=== PATIENT | female | born 1970 | race Caucasian/White ===

== ENCOUNTER → 2019-12-30 15:17 | Outpatient (BNVA) | payer OTHER, SELFPAY | PROVIDERS: Family Provider Family Medicine; PCP Family Medicine; Visit Provider Obstetrics & Gynecology | DX: N95.9 Unspecified menopausal and perimenopausal disorder (principal); R32 Unspecified urinary incontinence | CPT/HCPCS: 76830 ==

== ENCOUNTER → 2020-01-15 12:49 | Outpatient (BNVA) | payer OTHER, SELFPAY | PROVIDERS: Family Provider Family Medicine; PCP Family Medicine; Visit Provider Obstetrics & Gynecology | DX: N95.0 Postmenopausal bleeding (principal) | CPT/HCPCS: 81025 ==

== ENCOUNTER → 2020-01-16 10:47 | Outpatient (BNVA) | payer OTHER, SELFPAY | PROVIDERS: Family Provider Family Medicine; PCP Family Medicine; Visit Provider Obstetrics & Gynecology | DX: N95.0 Postmenopausal bleeding (principal) | CPT/HCPCS: 88305 ==

== ENCOUNTER → 2020-04-23 10:17 | Outpatient (BNVA) | payer OTHER, SELFPAY | PROVIDERS: Family Provider Family Medicine; PCP Family Medicine; Visit Provider Obstetrics & Gynecology | DX: Z11.59 Encounter for screening for other viral diseases (principal) | CPT/HCPCS: 87635 ==

== ENCOUNTER 2020-04-28 08:04 | Day surgery (SDC) | payer OTHER, SELFPAY ==
[2020-04-26 11:14] VITALS: BMI 31.7
[2020-04-28] VITALS (7 sets, daily range): BP systolic 94–111; BP diastolic 55–77; PULSE 70–96; RESP 16–18; TEMP 36.5–37.2; O2SAT 92–95
--- NOTE | 2020-04-28 08:53 | W.PM.OPSUD ---
Surgery/Procedure H&P Update DATE OF PROCEDURE: April 28, 2020 DATE H&P PERFORMED: 04/26/20 H&P UPDATE INFORMATION: I have reviewed H&P completed within last 30 days, I have examined patient prior to procedure and No changes to prior documentation PREOP DIAGNOSIS: Stress urinary incontinence, PLANNED PROCEDURE: Operation Date: 04/28/20 09:00 Proposed Procedures p Midurethral Single Incision Sling 27182 N39.46(Not Applicable) - Chaz Mojica MD
--- NOTE | 2020-04-28 09:00 | ANES.PREANE2 ---
Pre-Anesthetic Assessment Pre-Anesthetic Assessment: Height/Weight: Height 1.63 m Weight 83.915 kg Temp Pulse Resp BP Pulse Ox 98.7 F 77 18 103/77 93 04/28/20 08:25 04/28/20 08:25 04/28/20 08:25 04/28/20 08:25 04/28/20 08:25 Preop Diagnosis: Stress urinary incontinence, Proposed Procedure: Operation Date: 04/28/20 09:00 Proposed Procedures p Midurethral Single Incision Sling 85886 N39.46(Not Applicable) - Chaz Mojica MD Was Beta Berenice taken within 24 hours: N/A Last intake: Intake Last Liquid Date 04/27/20 Last Solid Date 04/27/20 Social: Social History: Tobacco and No alcohol Exam: Pre-Anes Outpt Exam: alert, oriented x 3, clear to auscultation bilaterally and regular rate & rhythm Airway: Submandibular: WNL Cervical ROM: WNL MP: 1 History/ROS: No significant history except as noted Pulmonary: Pulmonary: None reported Comments: Smoker CV/HEM: CV/HEM: None reported : : None reported Hepatic: Hepatic: Cirrohsis GI: GI: None reported Metabolic: Metabolic: None reported Musc/skel: Musc/skel: None reported Neuropsych: Neuropsych: Depression Anesthetic Plan: ASA status: 2 Anesthesia: General PFSH Anesthesia PFSH: Medical History Urinary incontinence, mixed Family History Mother Hyperlipidemia Hypertension Father Hyperlipidemia Hypertension Diabetes Heart disease Grandmother Diabetes Paternal grandmother Grandfather Stroke Maternal grandfather Denies family history of Colon cancer Ovarian cancer Breast cancer Family history of thyroid problem Uterine cancer Social History (Updated 04/26/20 @ 08:49 by Zulema Woodard RN) Smoking and tobacco status: current every day smoker cigarettes [ Other cigarette details: 1 cigarette/day ] and e-cigarettes E-Cigarette Details: vaporizer device Alcohol intake: never Female Reproductive History: Date of last menstrual period: 04/26/17 Data Anesthesia Cardiac Studies: No Data to Display
[2020-04-28] MEDS: sodium chloride 0.9% 1,000 ML 30 ML IV (09:01)
[2020-04-28] MEDS: scopolamine 1.5 Patch 1 PATCH TRANSDERMA (09:01)
[2020-04-28 09:16] LABS: OR HCG Qualitative Urine Negative (Negative)
[2020-04-28] MEDS: midazolam 1 mg/mL INJ 2 mL 2 MG IVP (09:17)
[2020-04-28 09:31] LABS: Basophils # 0.1 10^3/uL (0.0-0.1); Basophils % 0.7 %; Eosinophils # 0.6 10^3/uL (0.0-0.8); Eosinophils % 5.9 %; Hematocrit 41.4 % (37.0-47.0); Hemoglobin 13.1 g/dL (11.5-15.3); Lymphocytes # 2.3 10^3/uL (0.8-4.8); Lymphocytes % 21.4 %; Mean Corpuscular HGB Conc 31.6 g/dL (30.0-36.0); Mean Corpuscular Hemoglobin 27.8 pg (28.0-34.0); Mean Corpuscular Volume 87.7 fL (81-99); Mean Platelet Volume 11.6 fL (7.4-10.4); Monocytes # 0.6 10^3/uL (0.2-0.9); Monocytes % 5.1 %; Neutrophils # 7.16 10^3/uL (1.8-7.7); Neutrophils % 66.6 %; Nucleated Red Blood Cells % 0 %; Platelet Count 224 10^3/cmm (130-400); Red Blood Count 4.72 10^6/uL (4.1-5.3); Red Cell Distribution Width 13.5 % (12.1-15.1); White Blood Count 10.8 10^3/uL (4.0-10.0)
[2020-04-28 09:39] LABS: Blood Urea Nitrogen 16 mg/dL (6-20); Calcium 9.5 mg/dL (8.5-10.5); Carbon Dioxide 24 mmol/L (22-29); Chloride 103 mmol/L (98-107); Glomerular Filtration Rate 76.9 mL/min (90-130); Glucose 110 mg/dL (65-115); Osmolality Calculated 290 mOsm/kg (285-295); Sodium 139 mmol/L (136-145)
--- NOTE | 2020-04-28 10:07 | PM.OP ---
Operative Report Date of procedure: April 28, 2020 Pre-op Diagnosis: Stress urinary incontinence, Post-op diagnosis: same Post-op Findings: urethral hypermobility Procedure Done: Midurethral sling Implants: Coloplast Altis sling Surgeon: Chaz Mojica MD Anesthesia: General Estimated blood loss (mL): 25 IV fluids (mL): 900 Urine output (mL): 100 Complications: none Condition: stable Disposition: PACU Brief History: 49-year-old female with urinary stress incontinence Procedure: After obtaining informed consent, the patient was taken to the operating room and placed in the supine position, given general anesthesia, and prepped and draped in sterile fashion. The abdomen, vulva and vagina were prepped and draped in a sterile manner. A time out procedure was performed. Exam under anesthesia performed. A Dupont catheter was placed in the bladder. The anterior vaginal mucosa beneath the midurethra was infiltrated with 0.5% Marcaine with epinephrine. A vertical midline incision was made beneath the midurethra, nearly 1.5 cm length. Careful submucosal dissection was performed bilaterally up to the interior portion of the inferior pubic ramus. The insertion of adductor longus tendon on the patient?s pubic ramus was identified as reference land manda. Palpated the notch along the internal edge of ischiopubic ramus where the adductor longus tendon and the inferior pubic ramus meet. The needle of the SIS inserted aiming at the location of this notch. One of the integrated self-fixating tips place onto the needle by sliding it over the end of the needle. The needle/sling assembly was inserted toward the location of identified reference notch making sure that the flat of the handle is perpendicular to the desired path. The needle was tracked along the posterior surface of the ischiopubic ramus until the midline manda on the mesh is approximately at the midline position under the urethra. The needle was removed and the same was repeated on the contralateral side until the appropriate sling tension under the urethra was achieved ensuring that the mesh lays flat. The needle was removed and vaginal incision was closed in a running interlocking fashion with 2-0 Vicryl. Then the Dupont catheter was removed and cystoscope was inserted. The bladder was filled with sterile water. Complete evaluation of the bladder mucosa was performed noting no lacerations, dimpling, tears, bleeding of the mucosa or muscular layers. Both ureteral orifices were identified. Prompt excretion of urine from both ureteral orifices was noted. Cystoscope was withdrawn. Excellent hemostasis was obtained. Sponge, lap, needle, and instrument counts were correct times three. The patient was taken to the recovery room, awake and in stable condition.
== END 2020-04-28 11:32 | disposition home or self-care (01) ==
PROVIDERS: PCP Family Medicine; Visit Provider Obstetrics & Gynecology
PROC: (CPT 57288; principal; 2020-04-28 09:00)
PROC: 0TJB8ZZ Inspection of Bladder, Via Natural or Artificial Opening Endoscopic (ICD-10-PCS; CPT 52000; 2020-04-28 09:00)
DX: N39.3 Stress incontinence (female) (male) (principal); N36.41 Hypermobility of urethra; F17.210 Nicotine dependence, cigarettes, uncomplicated
CPT/HCPCS: 57288; 12345; 36415; 80048; 81025; 84703; 85025; 86850; 86900; 96374; C1713; J0131; J0690; J1100; J1885; J2250; J2405; J2704; J2710; J2765; J3010; J3490; J7030

== ENCOUNTER → 2020-12-13 11:10 | Outpatient (BNVA) | payer OTHER, SELFPAY | PROVIDERS: PCP Family Medicine; Visit Provider Surgery | DX: T63.301A Toxic effect of unspecified spider venom, accidental (unintentional), initial encounter (principal); Z20.822 Contact with and (suspected) exposure to COVID-19 | CPT/HCPCS: 87635 ==

== ENCOUNTER → 2020-12-17 14:21 | Outpatient (BNVA) | payer OTHER, SELFPAY | PROVIDERS: PCP Family Medicine; Visit Provider Surgery | DX: Z01.812 Encounter for preprocedural laboratory examination (principal); Z20.822 Contact with and (suspected) exposure to COVID-19 | CPT/HCPCS: 87635 ==

== ENCOUNTER 2020-12-23 07:14 | Day surgery (SDC) | payer OTHER, SELFPAY ==
[2020-12-22 11:49] VITALS: BMI 31.8
[2020-12-23 07:28] VITALS: BP 116/73; PULSE 70; RESP 18; TEMP 37.1; O2SAT 97
[2020-12-23] MEDS: sodium chloride 0.9% 1,000 ML 30 ML IV (07:42)
[2020-12-23] MEDS: acetaminophen 1,000 MG/100 ML PIGGYBACK 400 MG IV (07:43)
--- NOTE | 2020-12-23 07:53 | ANES.PREANE2 ---
Pre-Anesthetic Assessment Pre-Anesthetic Assessment: Height/Weight: Height 1.6 m Weight 81.647 kg Temp Pulse Resp BP Pulse Ox 98.8 F 70 18 116/73 97 12/23/20 07:28 12/23/20 07:28 12/23/20 07:28 12/23/20 07:28 12/23/20 07:28 Preop Diagnosis: Right gluteal wound Proposed Procedure: Operation Date: 12/23/20 08:45 Proposed Procedures p Debridement of right gluteal wound 94940 t63.301a(Not Applicable) - Juan Jay MD Was Beta Berenice taken within 24 hours: N/A Was Clonidine taken within 24 hours: N/A Last intake: Intake Last Liquid Date 12/22/20 Last Liquid Time 22:00 Last Solid Date 12/22/20 Last Solid Time 22:00 Social: Social History: Tobacco and No alcohol Exam: Pre-Anes Outpt Exam: alert, oriented x 3 and regular rate & rhythm Additional Exam Findings (including area of procedure): wheezing Airway: Submandibular: WNL Cervical ROM: WNL MP: 2 Dentition: Full Pulmonary: Pulmonary: COPD GI: GI: GERD Metabolic: Metabolic: Morbid obesity Anesthetic Plan: ASA status: 3 Anesthesia: General Risk of > 500 ml blood loss (7ml/kg in children): No Meds/Allergies Current Medications: Current Medications Generic Name Dose Route Start Last Admin Trade Name Freq PRN Reason Stop Dose Admin Sodium Chloride 1,000 mls @ 30 ml s/hr 12/23/20 07:30 12/23/20 07:42 Sodium Chloride 0.9% IV 12/24/20 07:29 30 mls/hr .Q24H SEN Administration PFSH Anesthesia PFSH: Medical History Urinary incontinence, mixed Family History Mother Hyperlipidemia Hypertension Father Hyperlipidemia Hypertension Diabetes Heart disease Grandmother Diabetes Paternal grandmother Grandfather Stroke Maternal grandfather Denies family history of Colon cancer Ovarian cancer Breast cancer Family history of thyroid problem Uterine cancer Social History Smoking and tobacco status: current every day smoker cigarettes [ Other cigarette details: 1 cigarette/day ] and e-cigarettes E-Cigarette Details: vaporizer device Alcohol intake: never Female Reproductive History: Date of last menstrual period: 04/26/17 Data Anesthesia Cardiac Studies: No Data to Display
--- NOTE | 2020-12-23 08:24 | W.PM.OPSUD ---
Surgery/Procedure H&P Update DATE OF PROCEDURE: December 23, 2020 DATE H&P PERFORMED: 12/13/20 H&P UPDATE INFORMATION: I have reviewed H&P completed within last 30 days, I have examined patient prior to procedure and No changes to prior documentation PREOP DIAGNOSIS: Right gluteal wound PRIMARY INDICATION FOR PROCEDURE: The same PLANNED PROCEDURE: Operation Date: 12/23/20 08:45 Proposed Procedures p Debridement of right gluteal wound 05112 t63.301a(Not Applicable) - Juan Jay MD
[2020-12-23] MEDS: lidocaine 2% INJ 20 mL INJECTION (09:06)
--- NOTE | 2020-12-23 09:15 | P.OP_ITS ---
Operative Report Date of procedure: December 23, 2020 Pre-op Diagnosis: Right gluteal wound Post-op diagnosis: same Post-op Findings: Necrosis involving subcutaneous tissues Procedure Done: 1-Excision of inflammatory mass of right gluteal area 2-Sharp debridement of right gluteal wound Implants: Packing with half-inch Nu Gauze Specimens removed/disposition: Right gluteal area inflammatory mass 6.2 x 3.3 x 2.4 cm Surgeon: Juan Jay Appraiser Timber: avionics technician Virid[place] Circulating nurse Ning Carrasco Anesthesia: MAC (Kaila Ward) Estimated blood loss (mL): 15 Complications: No immediate complication Condition: stable Disposition: same day Brief History: Symptomatic right gluteal wound status post spider bite. Full H&P informed consent per chart. Procedure: After identifying the patient holding area, the right lower extremity was marked before the procedure by myself in the presence of female pediatric care coordinator [place] nurse staff, patient was then taken to the operative suite, was placed in left lateral position where all pressure points were padded, IV antibiotics were given per protocol, undergone MAC by the anesthesia provider. Prep and drape of the wound region right gluteal area was done under the usual sterile technique. Time-out was done verifying the patient's name/date of /planned procedure and destination after the procedure, all were in agreement. Started by excising the unhealthy necrotic indurated tissues of the wound including the black eschar. Incision was created at the skin level and went all the way down to the subcutaneous tissues, wound was excised including unhealthy tissues w surrounding Indurated edges, sharp debridement was done to the wound cavity. Predebridement measurements 4 x 1.5 x 0.2 cm. Post debridement measurements 6.3 x 3.4 x 2[address] to the subcutaneous layer Debridement all the way to the healthier subcutaneous level Inflammatory mass was sent for permanent pathology with short sutures superior and long sutures marked lateral Copious and thorough irrigation of the wound was done with Vashe solution, followed by appropriate hemostasis, a [id number] 3-0 Vicryl was used for securing hemostasis and I elected to put interrupted horizontal mattress sutures using 2-0 nylon to approximate the skin edges towards the medial and lateral edges of the wound and following that packing of the wound was done with half inch Nu Gauze impregnated and lidocaine 2%, followed by ABDs,and Boy wraps Patient tolerated the procedure well, count of instruments, needles and sponges were completed at the end of the procedure. Patient was then taken to the recovery area in stable condition. I was present for the whole entire procedure
[2020-12-23 09:16] VITALS: BP 102/59; PULSE 60; RESP 20; TEMP 36.4; O2SAT 100
[2020-12-23 09:20] VITALS: BP 108/53; PULSE 54; RESP 18; O2SAT 100
[2020-12-23 09:25] VITALS: BP 122/61; PULSE 55; RESP 17; TEMP 36.4; O2SAT 97
[2020-12-23 09:31] VITALS: BP 125/51; PULSE 66; RESP 18; TEMP 36.4; O2SAT 94
[2020-12-23] MEDS: HYDROcodone-acetaminophen 5-325 mg Tablet 1 TAB PO (09:46)
[2020-12-23 09:50] VITALS: BP 117/60; PULSE 68; RESP 18; TEMP 36.4; O2SAT 97
--- NOTE | 2020-12-23 14:59 | ANE.PACU2 ---
Inpatient post-anesthesia follow up: Airway intact: Yes Vital signs: Temperature 97.6 F Pulse Rate 68 Respiratory Rate 18 Blood Pressure 117/60 Pulse Oximetry 97 Oxygen Delivery Me thod Room Air Oxygen Flow Rate 6 Fraction of Inspir ed Oxygen Hydration adequate: Yes Nausea and vomiting: No Pain level: 2 Mental status: Baseline
== END 2020-12-23 10:04 | disposition home or self-care (01) ==
PROVIDERS: PCP Family Medicine; Visit Provider Surgery
PROC: (CPT 11042; principal; 2020-12-23 08:35)
DX: T63.301A Toxic effect of unspecified spider venom, accidental (unintentional), initial encounter (principal); F17.210 Nicotine dependence, cigarettes, uncomplicated; J44.9 Chronic obstructive pulmonary disease, unspecified; K21.9 Gastro-esophageal reflux disease without esophagitis; E66.01 Morbid (severe) obesity due to excess calories; Z68.31 Body mass index [BMI] 31.0-31.9, adult
CPT/HCPCS: 11042; 11045; 88304; 96365; J0690; J2250; J2270; J2405; J2704; J3010; J3490; J7030

== ENCOUNTER 2020-12-24 13:30 | Outpatient (CLI) | payer OTHER, SELFPAY | END 2020-12-24 13:31 | disposition home or self-care (01) | LOC: WOUND 13:31 | PROVIDERS: PCP Family Medicine; Visit Provider Surgery | DX: L97.812 Non-pressure chronic ulcer of other part of right lower leg with fat layer exposed (principal) | CPT/HCPCS: 11042; G0463 ==

== ENCOUNTER 2020-12-31 11:13 | Outpatient (CLI) | payer OTHER, SELFPAY | END 2020-12-31 11:14 | disposition home or self-care (01) | LOC: WOUND 11:14 | PROVIDERS: PCP Family Medicine; Visit Provider Nurse Practitioner Family | DX: T81.89XA Other complications of procedures, not elsewhere classified, initial encounter (principal); Y83.8 Other surgical procedures as the cause of abnormal reaction of the patient, or of later complication, without mention of misadventure at the time of the procedure | CPT/HCPCS: 11042 ==

== ENCOUNTER 2021-01-07 09:55 | Outpatient (CLI) | payer OTHER, SELFPAY | END 2021-01-07 09:56 | disposition home or self-care (01) | LOC: WOUND 09:56 | PROVIDERS: PCP Family Medicine; Visit Provider Surgery | DX: T81.89XA Other complications of procedures, not elsewhere classified, initial encounter (principal); Y83.8 Other surgical procedures as the cause of abnormal reaction of the patient, or of later complication, without mention of misadventure at the time of the procedure | CPT/HCPCS: 11042 ==

== ENCOUNTER 2021-01-14 08:47 | Outpatient (CLI) | payer OTHER, SELFPAY | END 2021-01-14 08:48 | disposition home or self-care (01) | LOC: WOUND 08:48 | PROVIDERS: PCP Family Medicine; Visit Provider Surgery | DX: T81.89XA Other complications of procedures, not elsewhere classified, initial encounter (principal); Y83.8 Other surgical procedures as the cause of abnormal reaction of the patient, or of later complication, without mention of misadventure at the time of the procedure | CPT/HCPCS: 11042 ==

== ENCOUNTER 2021-01-21 09:13 | Outpatient (CLI) | payer OTHER, SELFPAY | END 2021-01-21 09:14 | disposition home or self-care (01) | LOC: WOUND 09:14 | PROVIDERS: PCP Family Medicine; Visit Provider Nurse Practitioner Family | DX: T81.89XA Other complications of procedures, not elsewhere classified, initial encounter (principal); Y83.8 Other surgical procedures as the cause of abnormal reaction of the patient, or of later complication, without mention of misadventure at the time of the procedure | CPT/HCPCS: 11042 ==

== ENCOUNTER 2021-01-28 09:21 | Outpatient (CLI) | payer OTHER, SELFPAY | END 2021-01-28 09:22 | disposition home or self-care (01) | LOC: WOUND 09:21 | PROVIDERS: PCP Family Medicine; Visit Provider Thoracic Surgery (Cardiothoracic Vascular Surgery) | DX: T81.89XA Other complications of procedures, not elsewhere classified, initial encounter (principal); Y83.8 Other surgical procedures as the cause of abnormal reaction of the patient, or of later complication, without mention of misadventure at the time of the procedure | CPT/HCPCS: 97597 ==

== ENCOUNTER 2021-02-04 09:43 | Outpatient (CLI) | payer OTHER, SELFPAY | END 2021-02-04 09:44 | disposition home or self-care (01) | LOC: WOUND 09:45 | PROVIDERS: PCP Family Medicine; Visit Provider Surgery | DX: T81.89XA Other complications of procedures, not elsewhere classified, initial encounter (principal); Y83.8 Other surgical procedures as the cause of abnormal reaction of the patient, or of later complication, without mention of misadventure at the time of the procedure | CPT/HCPCS: 11042 ==

== ENCOUNTER 2021-02-11 11:18 | Outpatient (CLI) | payer OTHER, SELFPAY | END 2021-02-11 11:19 | disposition home or self-care (01) | LOC: WOUND 11:18 | PROVIDERS: PCP Family Medicine; Visit Provider Surgery | DX: Z09 Encounter for follow-up examination after completed treatment for conditions other than malignant neoplasm (principal) | CPT/HCPCS: 99212 ==

== ENCOUNTER 2023-01-11 10:10 | Outpatient (CLI) | payer BC, SELFPAY ==
--- NOTE | 2023-01-11 10:24 | XR_ITS ---
WS: [id number] EXAMINATION: XR wrist RT 2V [id number] REASON FOR EXAM: WRIST PAIN, RIGHT COMPARISON: None available. ORDER DATE: 01/11/2023 10:26 AM FINDINGS: There is no sign of any acute osseous or articular abnormality. There are no specific soft tissue abn ormalities. XR/XR wrist RT 2V [id number] IMPRESSION: No acute change
== END 2023-01-11 10:11 | disposition home or self-care (01) ==
LOC: RAD 10:13
PROVIDERS: PCP Family Medicine; Visit Provider Nurse Practitioner Family
DX: M25.531 Pain in right wrist (principal)
CPT/HCPCS: 73100

== ENCOUNTER 2024-11-05 16:43 | Outpatient (CLI) | payer OTHER, SELFPAY ==
--- NOTE | 2024-11-05 17:00 | XR_ITS ---
WS: [id number] Left hand, AP and lateral views, 11/05/2024 Clinical Data: THUMB PAIN, LEFT Comparison: None. Findings: No fractures or dislocations are seen. The soft tissues are unremarkable. There is minimal osteoarthritis of the PIP and DIP joints of the left second through fifth fingers. 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
== END 2024-11-05 16:44 | disposition home or self-care (01) ==
PROVIDERS: PCP Internal Medicine; Visit Provider Nurse Practitioner Family
DX: M79.645 Pain in left finger(s) (principal)
CPT/HCPCS: 73120

== ENCOUNTER 2025-03-13 14:48 | Outpatient (CLI) | payer OTHER, SELFPAY ==
--- NOTE | 2025-03-13 14:52 | MM_ITS ---
WS: [id number] BILATERAL 3D TOMOSYNTHESIS DIGITAL SCREENING MAMMOGRAPHY WITH CAD CLINICAL INFORMATION: SCREENING HISTORY: Screening mammogram. No current complaints. COMPARISON: 2019 TECHNIQUE: Bilateral CC and MLO views. FINDINGS: Scattered fibroglandular densities bilaterally. New heterogeneous suspicious clustered calcifications anterior LEFT breast. Recommend further evaluation with spot magnification views. In addition recommend further evaluation with ultrasound as there may be an underlying nodule in this area. Unremarkable RIGHT breast. MM/MM [facility] tomosynthesis [id number] IMPRESSION: DENSITY: There are scattered areas of fibroglandular density. BI-RADS: 0 - Incomplete: Need additional imaging evaluation. FOLLOW UP: Need Additional Imaging Recommend LEFT breast spot magnification views of the calcifications and LEFT b reast ultrasound.
== END 2025-03-13 14:49 | disposition home or self-care (01) ==
LOC: RAD 14:49
PROVIDERS: PCP Internal Medicine; Visit Provider Nurse Practitioner Family
DX: Z12.31 Encounter for screening mammogram for malignant neoplasm of breast (principal); R92.323 Mammographic fibroglandular density, bilateral breasts; R92.1 Mammographic calcification found on diagnostic imaging of breast
CPT/HCPCS: 77063; 77067